=== PATIENT | male | born 1990 | race Caucasian/White ===

== ENCOUNTER 2019-01-12 20:20 | Emergency (ER) | payer OTHER ==
[2019-01-12] MEDS: METHYLPREDNISOLONE 125 MG INJ IM (21:55)
[2019-01-12] MEDS: IBUPROFEN 800 MG TAB PO (21:55)
== END 2019-01-12 22:30 | disposition home or self-care (01) ==
LOC: FTE 20:20
DX: J01.00 Acute maxillary sinusitis, unspecified (principal)
CPT/HCPCS: 96372; 99284-25